=== PATIENT | female | born 1965 ===

== ENCOUNTER 2024-06-18 04:02 | Day surgery (SDC) | payer BC, OTHER ==
[2024-06-14 10:17] VITALS: BMI 25.7
[2024-06-18] MEDS ORDERED: PHENYLEPHRINE HCL 10 MG/1 ML SINGLE DOSE VIAL ONE (07:01)
[2024-06-18] MEDS ORDERED: LIDOCAINE HCL/PF 2% SDV 5ML VIAL ONE (07:01)
[2024-06-18] MEDS ORDERED: DEXAMETHASONE SOD PHOSPHATE 4 MG/1 ML VIAL ONE (07:01)
[2024-06-18] MEDS ORDERED: PROPOFOL 40 ML ONE (07:01)
[2024-06-18] MEDS ORDERED: SUCCINYLCHOLINE CHLORIDE 200 MG/10 ML SYRINGE ONE (07:02)
[2024-06-18] MEDS ORDERED: MIDAZOLAM HCL 2 MG/2 ML SINGLE DOSE VIAL ONE (07:02)
[2024-06-18] MEDS ORDERED: oxyCODONE HCL 5 MG TABLET PO PRN ×2 (07:38→07:51)
[2024-06-18] MEDS ORDERED: ONDANSETRON 4 MG/2 ML VIAL IVPUSH PRN ×2 (07:38→07:51)
[2024-06-18] MEDS ORDERED: IBUPROFEN 600 MG TABLET (FP) PO PRN (07:51)
[2024-06-18] MEDS ORDERED: IBUPROFEN 800 MG/8 ML IJ IVPB PRN (07:51)
[2024-06-18] MEDS ORDERED: ELECTROLYTE-148 SOLN 1,000 ML IV SCH (08:00)
[2024-06-18] MEDS ORDERED: LACTATED RINGERS SOLUTION 1,000 ML IV SCH (09:15)
[2024-06-18 12:25] VITALS: BP 130/75; PULSE 58; TEMP 97.1
[2024-06-18 12:27] VITALS: RESP 20
== END 2024-06-18 10:44 | disposition home or self-care (01) ==
LOC: JASU-SURG 04:02
PROVIDERS: ATTEND Obstetrics & Gynecology
PROC: 0UDB8ZZ Extraction of Endometrium, Via Natural or Artificial Opening Endoscopic (ICD-10-PCS; principal; 2024-06-18 07:30)
DX: N85.00 Endometrial hyperplasia, unspecified (principal); D25.0 Submucous leiomyoma of uterus
CPT/HCPCS: 86850; 86900; 86901; 88305-TC; 94760